=== PATIENT | female | born 1960 | race Caucasian/White ===

== ENCOUNTER 2016-09-21 05:12 | Day surgery (SDC) | payer OTHER ==
[2016-09-12 16:51] VITALS: BMI 26.4
[2016-09-21] MEDS ORDERED: MIDAZOLAM HCL 2 MG/2 ML SINGLE DOSE VIAL ONE ×2 (15:47)
[2016-09-21] MEDS ORDERED: PROPOFOL 20 ML ONE (15:47)
[2016-09-21] MEDS ORDERED: DEXAMETHASONE SOD PHOSPHATE 4 MG/1 ML VIAL ONE (15:47)
[2016-09-21] MEDS ORDERED: KETOROLAC TROMETHAMINE 30 MG/1 ML VIAL ONE (15:47)
[2016-09-21] MEDS ORDERED: ONDANSETRON 4 MG/2 ML VIAL IVPUSH PRN (16:15)
[2016-09-21] MEDS ORDERED: PROMETHAZINE HCL 25 MG/1 ML VIAL IVPUSH PRN (16:15)
[2016-09-21] MEDS ORDERED: oxyCODONE HCL 5 MG TABLET PO PRN ×2 (16:15→17:01)
[2016-09-21] MEDS ORDERED: ONDANSETRON 4 MG/2 ML VIAL IVPB PRN (17:01)
[2016-09-21] MEDS ORDERED: IBUPROFEN 600 MG TABLET (FP) PO PRN (17:01)
[2016-09-21] MEDS ORDERED: IBUPROFEN 800 MG/8 ML IJ IVPB PRN (17:01)
[2016-09-21] MEDS ORDERED: IBUPROFEN 400 MG TABLET (FP) PO PRN (17:01)
[2016-09-21 17:12] VITALS: TEMP 98.1
--- NOTE | 2016-09-21 17:12 | HP ---
Past Medical History - Primary Care Physician PCP:: Brayden Comer - Admission Chief Complaint: high grade audrey History of Present Illness: 55 yo f with hx of High grade AUDREY of cervix admitted for leep cone ECC , rba discussed History Source: Patient Limitations to Obtaining History: Language Barrier - Past Medical History Cardiovascular: Yes: Hyperlipdemia Endocrine: Yes: Hypothyroidism - Past Surgical History Past Surgical History: Yes: Hx Myomectomy: No Hx Transabdominal Cerclage: No Additional Surgical History: salpingectomy for ectopic - Smoking History Smoking history: Never smoked Have you smoked in the past 12 months: No - Alcohol/Substance Use Hx Alcohol Use: No - Social History History of Recent Travel: No Home Medications - Allergies Allergies/Adverse Reactions: Allergies Allergy/AdvReac Type Severity Reaction Status Date / Time No Known Allergies Allergy Verified 09/21/16 14:46 - Home Medications Home Medications: Ambulatory Orders Atorvastatin Ca [Lipitor] 20 mg PO HS 09/12/16 Ibuprofen [Motrin -] 400 mg PO QID PRN 09/12/16 Levothyroxine [Synthroid -] 50 mcg PO DAILY 09/12/16 Ibuprofen [Motrin -] 600 mg PO QID #28 tablet 09/21/16 Review of Systems - Review of Systems Constitutional: reports: No Symptoms Eyes: reports: No Symptoms HENT: reports: No Symptoms Neck: reports: No Symptoms Cardiovascular: reports: No Symptoms Respiratory: reports: No Symptoms Gastrointestinal: reports: No Symptoms Genitourinary: reports: No Symptoms Breasts: reports: No Symptoms Reported Musculoskeletal: reports: No Symptoms Integumentary: reports: No Symptoms Neurological: reports: No Symptoms Endocrine: reports: No Symptoms Hematology/Lymphatic: reports: No Symptoms Psychiatric: reports: No Symptoms 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: Vital Signs Temperature 98.3 F 09/21/16 16:13 Pulse Rate 60 09/21/16 16:13 Respiratory Rate 18 09/21/16 16:13 Blood Pressure 116/73 09/21/16 16:13 O2 Sat by Pulse Oximetry (%) 96 09/21/16 16:13 Constitutional: Yes: Well Nourished, No Distress, Calm Eyes: Yes: WNL, Conjunctiva Clear, EOM Intact HENT: Yes: WNL, Atraumatic, Normocephalic Neck: Yes: WNL, Supple, Trachea Midline Cardiovascular: Yes: WNL, Regular Rate and Rhythm Respiratory: Yes: WNL, Regular, CTA Bilaterally Gastrointestinal: Yes: WNL ...Rectal Exam: Yes: WNL Renal/: Yes: WNL Pelvis: Yes: WNL External Genitalia: Yes: Normal Internal Exam Deferred: No Vaginal Exam: Yes: Normal Cervix: Yes: Normal, Erosion Adnexa: Not Palpable: Left, Right ....Post : Yes: Uterus firm Breast(s): Yes: WNL Musculoskeletal: Yes: WNL Extremities: Yes: WNL Integumentary: Yes: WNL Neurological: Yes: WNL, Alert, Oriented ...Motor Strength: WNL Psychiatric: Yes: WNL, Alert, Oriented Problem List - Problem (1) High grade squamous intraepithelial cervical dysplasia Code(s): R87.613 - HIGH GRADE INTREPITH LESION CYTO SMR CRVX (HGSIL) Assessment/Plan leep cone , rba discussed
[2016-09-21] MEDS ORDERED: ELECTROLYTE-148 SOLN 1,000 ML IV SCH (17:15)
[2016-09-21 18:18] VITALS: BP 112/68; PULSE 71
[2016-09-21] MEDS ORDERED: ATORVASTATIN CA 20 MG TABLET (FP) PO SCH (22:00)
[2016-09-22] MEDS ORDERED: LEVOTHYROXINE NA 50 MCG TABLET (FP) PO SCH (07:00)
--- NOTE | 2016-09-22 09:20 | OP ---
DATE OF OPERATION: 09/21/2016 PREOPERATIVE DIAGNOSIS: High grade cervical dysplasia. POSTOPERATIVE DIAGNOSIS: High grade cervical dysplasia. PROCEDURE: Loop electrosurgical excision procedure cone biopsy and endocervical curettage. SURGEON: Shaylee Velásquez MD ANESTHESIA: General. ANESTHESIOLOGIST: Bud Xie MD ESTIMATED BLOOD LOSS: 25 mL. DESCRIPTION OF PROCEDURE: The patient was taken to the operating room, and under adequate general anesthesia, examination under anesthesia revealed external genitalia to be normal. Vagina was normal, no lesion. Cervix, slight erosion was seen in the anterior and posterior lip. Cervix was free, no adhesion. Uterus was normal sized. Adnexa, no masses were palpable. Then, with a Glass speculum in the vagina, cervix and vagina were saturated with ascorbic acid, and then, area of GODFREY was noted, and Lugols solution was applied. Then, the LEEP cone was done, and the area of GODFREY was removed in its entirety. Then, endocervical curetting was done. Then, the area of the cone was cauterized with the bulb cautery, and no active bleeding was seen. Patient tolerated the procedure well, left the OR in good condition. SHAYLEE VELÁSQUEZ M.D. [id number]
--- NOTE | 2016-09-25 15:16 | PATH ---
Surgical Pathology Report Patient Name: WILIAM GO [facility]. Rec. #: [id number] /Age/Gender: 1960 (Age: 55) / F Account: [id number] Location: [facility] Taken: 09/19/2016 Received: 09/22/2016 Reported: 09/25/2016 Physicians: Brayden Comer M.D. Specimen(s) Received A: ENDOCERVICAL CURETTINGS B: LEEP CONE Clinical History Cervical dysplasia Final Diagnosis A. ENDOCERVIX, CURETTING: BENIGN ENDOCERVICAL EPITHELIUM AND MUCOSA, AND SCANT BENIGN GLANDULAR EPITHELIUM CONSISTENT WITH ENDOMETRIAL TISSUE. NO DYSPLASIA IDENTIFIED. B. CERVIX, LEEP CONE EXCISION: MULTIPLE PORTIONS OF CERVICAL TISSUE WITH EXTENSIVE THERMAL ARTIFACT AND DENUDMENT OF EPITHELIUM. FOCAL HIGH GRADE SQUAMOUS INTRAEPITHELIAL LESION (HSIL, MODERATE DYSPLASIA) PRESENT. AREAS OF RESOLVING HEMORRHAGE WITH ASSOCIATED FOREIGN BODY REACTION SUGGESTIVE OF PRIOR BIOPSY SITE PRESENT. Comment: Due to the fragmented nature of the specimen, a definitive assessment of the margins cannot be rendered. Recommend correlation with clinical findings and followup as clinically indicated. Electronically Signed Faisal Rodriguez M.D. Gross Description A. Received in formalin labeled "ECC-endocervical curettings," is a 1.0 x 0.7 x 0.2 cm aggregate of mcdonald soft tissue fragments admixed with mucus. The formalin is filtered and the specimen is entirely submitted in one cassette. B. Received in formalin labeled "LEEP cone biopsy," are 10 mcdonald, irregular, unoriented portions of soft tissue ranging from 0.6 x 0.4 x 0.1 cm to 1.8 x 0.5 x 0.2 cm. The specimens are inked green, serially sectioned and entirely submitted in 4 cassettes. /09/22/2016 saudi09/22/2016
== END 2016-09-21 18:20 | disposition home or self-care (01) ==
LOC: JASU-SURG 05:12
PROVIDERS: ATTEND Obstetrics & Gynecology
PROC: 0UBC7ZX Excision of Cervix, Via Natural or Artificial Opening, Diagnostic (ICD-10-PCS; principal; 2016-09-21 15:30)
DX: N87.9 Dysplasia of cervix uteri, unspecified (principal)
CPT/HCPCS: 88305-TC; 88307-TC; 94760